=== PATIENT | female | born 1995 | race Caucasian/White ===

== ENCOUNTER 2018-12-15 23:33 | Emergency (ER) | payer MEDICAID ==
[~2018-12-15] VITALS: Ht 162.6 cm; Wt 100.7 kg
[2018-12-15 23:41] VITALS: Ht 162.6 cm; Wt 100.7 kg
[2018-12-16 01:35] LABS: BASOPHIL % 0.9 % (0-2); PLATELET COUNT 276 x10^3mcL (130-400); RED CELL DISTRIBUTION WIDTH 12.2 % (11.5-14.5)
[2018-12-16 01:35] LABS: microscopic required? YES; urine erythrocyte TRACE (NEGATIVE)
[2018-12-16 01:50] LABS: CALCIUM 8.9 mg/dL (8.5-10.1); CARBON DIOXIDE 29.5 mmol/L (21-32); CHLORIDE SERUM 102 mmol/L (98-107); CREATININE SERUM 0.8 mg/dL (0.6-1.0); GFR1 > 60 mL/min; GLUCOSE SERUM 77 mg/dL (74-106); POTASSIUM SERUM 3.7 mmol/L (3.5-5.1); SODIUM SERUM 138 mmol/L (136-145)
[2018-12-16 01:55] LABS: ALKALINE PHOSPHATASE 97 U/L (46-116); ALT/SGPT 61 U/L (14-59); AST/SGOT 26 U/L (15-37); BILIRUBIN TOTAL 0.4 mg/dL (0.20-1.00); TOTAL PROTEIN, SERUM 7.8 g/dL (6.4-8.2)
[2018-12-16 02:17] VITALS: BP 138/703
== END 2018-12-16 02:18 | disposition home or self-care (01) ==
LOC: ED 23:33
PROVIDERS: Emergency Medicine
DX: N30.00 Acute cystitis without hematuria (principal); J02.9 Acute pharyngitis, unspecified; M79.10 Myalgia, unspecified site; Z88.0 Allergy status to penicillin
CPT/HCPCS: J1885

== ENCOUNTER 2018-12-19 03:04 | Emergency (ER) | payer MEDICAID ==
[~2018-12-19] VITALS: Ht 162.6 cm; Wt 102.4 kg
[2018-12-19 03:09] VITALS: Ht 162.6 cm; Wt 102.4 kg
[2018-12-19 05:25] LABS: BASOPHIL % 0.3 % (0-2); PLATELET COUNT 265 x10^3mcL (130-400); RED CELL DISTRIBUTION WIDTH 12.8 % (11.5-14.5)
[2018-12-19 05:28] LABS: microscopic required? YES; urine erythrocyte NEGATIVE (NEGATIVE)
[2018-12-19 05:37] LABS: CALCIUM 8.4 mg/dL (8.5-10.1); CARBON DIOXIDE 30.7 mmol/L (21-32); CHLORIDE SERUM 104 mmol/L (98-107); CREATININE SERUM 0.8 mg/dL (0.6-1.0); GFR1 > 60 mL/min; GLUCOSE SERUM 92 mg/dL (74-106); SODIUM SERUM 141 mmol/L (136-145)
[2018-12-19 05:41] LABS: ALBUMIN 3.7 g/dL (3.4-5.0); ALKALINE PHOSPHATASE 83 U/L (46-116); ALT/SGPT 55 U/L (14-59); AST/SGOT 31 U/L (15-37); BILIRUBIN TOTAL 0.33 mg/dL (0.20-1.00); LIPASE 115 IU/L (73-393); TOTAL PROTEIN, SERUM 7.2 g/dL (6.4-8.2)
[2018-12-19 07:02] VITALS: BP 117/73
== END 2018-12-19 06:53 | disposition home or self-care (01) ==
LOC: ED 03:04
PROVIDERS: Emergency Medicine
DX: N39.0 Urinary tract infection, site not specified (principal); R05 Cough; Z88.0 Allergy status to penicillin
CPT/HCPCS: 36415; J0500

== ENCOUNTER 2019-10-08 15:47 | Emergency (ER) | payer OTHER ==
[~2019-10-08] VITALS: Ht 162.6 cm; Wt 99.8 kg
[2019-10-08 17:25] VITALS: Ht 162.6 cm; Wt 99.8 kg
[2019-10-08 21:10] VITALS: BP 106/75
== END 2019-10-08 21:10 | disposition home or self-care (01) ==
LOC: ED 15:47
DX: S00.83XA Contusion of other part of head, initial encounter (principal); S06.0X9A Concussion with loss of consciousness of unspecified duration, initial encounter; Z88.0 Allergy status to penicillin; Y04.8XXA Assault by other bodily force, initial encounter; Y93.89 Activity, other specified; Y92.89 Other specified places as the place of occurrence of the external cause; Y99.8 Other external cause status

== ENCOUNTER 2020-04-21 02:09 | Emergency (ER) | payer OTHER ==
[~2020-04-21] VITALS: Ht 162.6 cm; Wt 95.9 kg
[2020-04-21 02:23] VITALS: Ht 162.6 cm; Wt 95.9 kg
[2020-04-21 06:14] LABS: microscopic required? NO
[2020-04-21 06:18] LABS: PLATELET COUNT 221 x10^3mcL (130-400); RED CELL DISTRIBUTION WIDTH 13.4 % (11.5-14.5)
[2020-04-21 06:28] LABS: CARBON DIOXIDE 28.1 mmol/L (21-32); CHLORIDE SERUM 104 mmol/L (98-107); CREATININE SERUM 0.8 mg/dL (0.6-1.0); GFR1 > 60 mL/min; GLUCOSE SERUM 87 mg/dL (74-106); POTASSIUM SERUM 3.9 mmol/L (3.5-5.1); SODIUM SERUM 140 mmol/L (136-145)
[2020-04-21 06:31] LABS: UA SPECIFIC GRAVITY 1.015 (1.005-1.035); urine erythrocyte NEGATIVE (NEGATIVE)
[2020-04-21 06:33] LABS: BAND NEUTROPHIL 2 % (0-10); MONOCYTE 5 % (0-7); SEGMENTED NEUTROPHILS 64 % (37-75)
[2020-04-21 06:34] LABS: ALBUMIN 4.2 g/dL (3.4-5.0); ALKALINE PHOSPHATASE 80 U/L (46-116); ALT/SGPT 29 U/L (14-59); AST/SGOT 16 U/L (15-37); BILIRUBIN TOTAL 0.45 mg/dL (0.20-1.00); CHOLESTEROL 144 mg/dL (<200); CHOLESTEROL/HDL RATIO 2.5; HDL CHOLESTEROL 57 mg/dL (40-60); LIPASE 99 IU/L (73-393); PLATELET MORPHOLOGY PLATELETS NORMAL; TOTAL PROTEIN, SERUM 7.5 g/dL (6.4-8.2); TRIGLYCERIDES 69 mg/dL (<150); rbc morphology (normal/abnorm) NORMAL (NORMAL)
[2020-04-21 08:36] VITALS: BP 105/83
== END 2020-04-21 08:37 | disposition home or self-care (01) ==
LOC: ED 02:09
PROVIDERS: Specialist
DX: N39.0 Urinary tract infection, site not specified (principal); Z88.0 Allergy status to penicillin